=== PATIENT | male | born 1985 | race Caucasian/White ===

== ENCOUNTER 2016-04-17 12:12 | Emergency (ER) | payer OTHER ==
[~2016-04-17] VITALS: Ht 182.9 cm; Wt 68.2 kg
[~2016-04-17 12:12] MED LIST: ALBUAER3 INH; CYCL1TAB29 PO; NORC5TAB PO; ZOFR4TAB SL
[2016-04-17 12:13] VITALS: BP 148/84; PULSE 84; RESP 14; TEMP 98.5; O2SAT 97
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
== END 2016-04-17 14:32 | disposition home or self-care (01) ==
LOC: NEPB 12:12
DX: S22.080D Wedge compression fracture of T11-T12 vertebra, subsequent encounter for fracture with routine healing (principal); V97.2 Parachutist accident; Y93.89 Activity, other specified; Y92.520 Airport as the place of occurrence of the external cause; J45.909 Unspecified asthma, uncomplicated; F12.90 Cannabis use, unspecified, uncomplicated
CPT/HCPCS: 99283

== ENCOUNTER 2016-04-19 11:56 | Emergency (ER) | payer OTHER ==
[~2016-04-19] VITALS: Ht 182.9 cm; Wt 71.0 kg
[2016-04-19 11:58] VITALS: BP 134/78; PULSE 88; RESP 16; TEMP 97.9; O2SAT 98
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
--- NOTE | 2016-04-19 19:56 | RADRPT ---
EXAM DATE/TIME: 04/19/2016 19:28 [facility] COMPARISON: MRI LUMBAR SPINE W/O CONTRAST, January 15, 2016, 11:31. INDICATIONS : Pain. MEDICAL HISTORY : None. SURGICAL HISTORY : None. ENCOUNTER: Initial ACUITY: 4-6 months PAIN SCORE: 5/10 LOCATION: back. TECHNIQUE: Multiplanar multisequence MRI of the lumbar spine was performed without contrast. FINDINGS: The most caudal appearing lumbar vertebra is numbered as L5. VERTEBRAE: Homogeneous signal, with the exception of minimal fracture along the superior vertebral body of T12. Normal alignment. [place]US: Normal level and configuration. T12-L1: The thecal sac has a normal diameter. No evidence of disc bulge or protrusion. The neural foramina are patent bilaterally. L1-L2: The thecal sac has a normal diameter. No evidence of disc bulge or protrusion. The neural foramina are patent bilaterally. L2-L3: The thecal sac has a normal diameter. No evidence of disc bulge or protrusion. The neural foramina are patent bilaterally. L3-L4: The thecal sac has a normal diameter. No evidence of disc bulge or protrusion. The neural foramina are patent bilaterally. L4-L5: The thecal sac has a normal diameter. No evidence of disc bulge or protrusion. The neural foramina are patent bilaterally. L5-S1: Tiny central protrusion abuts the thecal sac. No canal stenosis. The neural foramina are patent bila terally. CONCLUSION: 1. Minimal fracture along the superior T12. No retropulsion of posterior fragments. No significant lo ss of height. 2. Tiny central protrusion at L5-S1. Louis Yañez MD on April 19, 2016 at 19:52 Board Certified Radiologist. This report was verified electronically.
--- NOTE | 2016-04-19 20:06 | PD ---
Physical Exam Date Seen by Provider: Apr 19, 2016 Time Seen by Provider: 20:03 Data Data Last Documented VS Vital Signs Date Time Temp Pulse Resp B/P Pulse Ox O2 Delivery O2 Flow Rate FiO2 04/19/16 11:58 97.9 88 16 134/78 98 Room Air Orders Mri L Spine W/O Contrast (04/19/16 ) [facility] Medical Record Reviewed: Yes Supervised Visit with JUAN: No Interpretation(s) MRI lumbar spine: Healing T12 fracture, L5-S1 tiny bulge Differential Diagnosis Differential diagnoses: Fracture, nerve root impingement, hematoma, disc herniation Narrative Course MRI of the spine does not reveal any significant causes of the patient's pain. His exam is very reassuring. He is medically stable for discharge. This is paresthesias, T12 fracture Diagnosis Primary Impression: Paresthesia of foot Qualified Code: R20.2 - Paresthesia of foot, unspecified laterality Additional Impression: T12 vertebral fracture Qualified Code: S22.080D - Closed wedge compression fracture of twelfth thoracic vertebra with routine healing, subsequent encounter Patient Instructions: General Instructions Additional Instruction: Rest. Continue home medications. Follow-up with your doctor as scheduled. Return to the ER for emergencies. Med/Other Pt SpecificInfo: No Change to Meds Disposition: 01 DISCHARGE HOME Condition: Stable Jacinto Guajardo Apr 19, 2016 20:06
== END 2016-04-19 21:09 | disposition home or self-care (01) ==
LOC: NEPB 11:56
DX: R20.2 Paresthesia of skin (principal); S22.080D Wedge compression fracture of T11-T12 vertebra, subsequent encounter for fracture with routine healing; J45.909 Unspecified asthma, uncomplicated; F12.90 Cannabis use, unspecified, uncomplicated; V97.2 Parachutist accident
CPT/HCPCS: 72148